=== PATIENT | female | born 1990 | race Caucasian/White ===

== ENCOUNTER 2018-10-18 20:54 | Inpatient (IN) | payer OTHER ==
[~2018-10-18] VITALS: Ht 160 cm; Wt 104.3 kg
[2018-10-18] MEDS ORDERED: PRENATAL TABLE1 EAC1 PO (22:19)
[2018-10-18] MEDS ORDERED: FOLIC ACID1 MG PO (22:21)
== END 2018-10-22 13:07 | disposition home or self-care (01) | DRG 787 ==
LOC: LDR 20:54 → OB/GYN 10-19 19:17
PROVIDERS: ADMIT Obstetrics & Gynecology
PROC: 4A0HXFZ Measurement of Products of Conception, Cardiac Rhythm, External Approach (ICD-10-PCS; 2018-10-19)
PROC: 10D00Z1 Extraction of Products of Conception, Low, Open Approach (ICD-10-PCS; principal; 2018-10-19 15:30)
DX: O82 Encounter for cesarean delivery without indication (principal); O41.03X0 Oligohydramnios, third trimester, not applicable or unspecified; O33.8 Maternal care for disproportion of other origin; Z37.0 Single live birth; Z3A.39 39 weeks gestation of pregnancy